=== PATIENT | male | born 1975 | race African-American/Black ===

== ENCOUNTER 2017-07-09 10:59 | Emergency (ER) | payer MEDICAID, OTHER ==
[~2017-07-09] VITALS: Ht 175.3 cm; Wt 94.0 kg
[~2017-07-09 10:59] MED LIST: seroquel; zoloft
[2017-07-09] MEDS ORDERED: TETANUS, DIPHTHERIA, PERTUSSIS VAC/PF 0.5ML (>7YR OLD) IM ONE (12:00)
[2017-07-09] MEDS ORDERED: LIDOCAINE HCL/PF 1% 2ML VIAL INFIL ONE (14:00)
[2017-07-09] MEDS ORDERED: LIDOCAINE HCL/PF 1% 10 MG/ML 5ML VIAL IJ NR (14:05)
[2017-07-09 14:10] VITALS: BP 132/84
[2017-07-09] MEDS ORDERED: BACITRACIN ZINC OINT UDPKT TOP ONE (14:30)
== END 2017-07-09 14:46 | disposition home or self-care (01) ==
LOC: ER 13:10
DX: S61.211A Laceration without foreign body of left index finger without damage to nail, initial encounter (principal); I10 Essential (primary) hypertension; F20.9 Schizophrenia, unspecified; F17.200 Nicotine dependence, unspecified, uncomplicated; W25.XXXA Contact with sharp glass, initial encounter; Y93.89 Activity, other specified; Y92.018 Other place in single-family (private) house as the place of occurrence of the external cause
CPT/HCPCS: 29130; 73140; 90471; 90715; 99284; J3490

== ENCOUNTER 2021-07-14 21:18 | Emergency (ER) | payer MEDICAID ==
[~2021-07-14] VITALS: Ht 175.3 cm; Wt 97.7 kg
[2021-07-14 21:49] VITALS: BP 122/92
[2021-07-15 00:16] LABS: HEMATOCRIT. 49.7 % (42.0-52.0); MEAN CORPUSCULAR HEMOGLOBIN 28.4 pg (28.0-32.0); MEAN CORPUSCULAR VOLUME 83.2 fL (80.0-94.0); MEAN PLATELET VOLUME 7.2 fl (7.4-10.4); PLATELET 261 x1000/uL (130-400); RED BLOOD CELL COUNT 5.97 mill/uL (4.7-6.1); RED CELL DISTRIBUTION WIDTH 15.2 % (11.6-14.6)
[2021-07-15 00:28] LABS: CHLORIDE 100 mEq/L (98-107)
[2021-07-15 00:34] LABS: ETHANOL BLOOD < 10 mg/dL
[2021-07-15 00:36] LABS: *AMPHETAMINES SCREEN URINE NEGATIVE (NEGATIVE); *BARBITURATES SCREEN URINE NEGATIVE (NEGATIVE); *BENZODIAZEPINES SCREEN URINE NEGATIVE (NEGATIVE); *COCAINE SCREEN URINE PRESUMTIVE POSITIVE (NEGATIVE); CANNABINOID URINE SCREEN NEGATIVE (NEGATIVE); METHADONE URINE SCREEN NEGATIVE (NEGATIVE); OPIATES URINE SCREEN NEGATIVE (NEGATIVE); PHENCYCLIDINE URINE SCREEN NEGATIVE (NEGATIVE)
[2021-07-15] MEDS ORDERED: AMOX-424 PO (01:50)
[2021-07-15] MEDS ORDERED: ONDA4TAB5 MT (01:51)
[2021-07-15 02:12] LABS: PLATELET ESTIMATE NORMAL
== END 2021-07-15 01:57 | disposition home or self-care (01) ==
LOC: ER 21:18
DX: F14.90 Cocaine use, unspecified, uncomplicated (principal); F10.10 Alcohol abuse, uncomplicated; Y90.0 Blood alcohol level of less than 20 mg/100 ml; R42 Dizziness and giddiness; R79.89 Other specified abnormal findings of blood chemistry; I10 Essential (primary) hypertension; F20.9 Schizophrenia, unspecified
CPT/HCPCS: 36415; 80048; 80076; 80305; 80320; 85025; 99284; G0480